=== PATIENT | female | born 1955 | race Hispanic/Latino ===

== ENCOUNTER 2017-09-30 03:23 | Inpatient (IN) | payer MEDICARE ==
[~2017-09-30] VITALS: Ht 162.6 cm; Wt 83.8 kg
[2017-09-30] VITALS (10 sets, daily range): BP systolic 126–176; BP diastolic 45–100
[2017-09-30] MEDS ORDERED: ONDANSETRON HCL 4 MG/2 ML VIAL ONE (05:17)
[2017-09-30] MEDS ORDERED: MORPHINE SULFATE 4 MG/1ML SYG ONE (05:17)
[2017-09-30 05:23] LABS: BASOPHILS % (AUTO) 0.6 % (0.0-5.0); EOSINOPHILS % (AUTO) 1.4 % (0.0-8.0); HEMATOCRIT 28.7 % (36-48); LYMPHOCYTES % (AUTO) 13.1 % (21.0-51.0); MEAN CORPUSCULAR HEMOGLOBIN 30.3 pg (27.0-33.0); MEAN CORPUSCULAR HGB CONC 33.4 g/dL (32.0-36.0); MEAN CORPUSCULAR VOLUME 90.7 fL (79-99); MONOCYTES % (AUTO) 6.2 % (3.0-13.0); NEUTROPHILS % (AUTO) 78.7 % (40.0-77.0); PLATELET COUNT (AUTO) 127 K/uL (130-400); RED BLOOD CELL COUNT(AUTO) 3.16 MIL/uL (4.00-5.50); RED CELL DISTRIBUTION WIDTH 14.6 % (11.0-15.5); WHITE BLOOD COUNT (AUTO) 6.7 K/uL (4.8-10.8)
[2017-09-30 05:30] LABS: CREATININE 7.2 mg/dL (0.5-1.5)
[2017-09-30 05:34] LABS: ALBUMIN 3.5 g/dL (3.5-5.0); BILIRUBIN,TOTAL 0.5 mg/dL (0.2-1.0)
[2017-09-30 05:36] LABS: INR 1.12 (0.85-1.15); PARTIAL THROMBOPLASTIN TIME 24.8 SEC (26.3-35.5); PROTHROMBIN TIME 11.7 SEC (9.6-11.6)
[2017-09-30] MEDS ORDERED: MORPHINE SULFATE 4 MG/1ML SYG IVP PRN (06:00)
[2017-09-30] MEDS ORDERED: DEXTROSE 50%-WATER 50 ML DISP.SYRIN IV PRN (06:00)
[2017-09-30] MEDS ORDERED: GLUCAGON 1MG KIT 1 MG ML IM PRN (06:00)
[2017-09-30] MEDS: FAMOTIDINE/PF 20 MG/2 ML VIAL IV SCH ×2 (09:00→19:58)
[2017-09-30] MEDS ORDERED: FAMOTIDINE/PF 20 MG/2 ML VIAL IV ONE (09:05)
[2017-09-30] MEDS ORDERED: MORPHINE SULFATE 2 MG/ML 1ML SYG ONE (09:12)
[2017-09-30] MEDS ORDERED: INSULIN HUMULIN R 100 UNIT/ML 3ML ONE (09:41)
[2017-09-30] MEDS: INSULIN R NPO SSI SQ SCH ×3 (09:45→18:00)
[2017-09-30] MEDS ORDERED: ONDANSETRON HCL 4 MG/2 ML VIAL IVP PRN (14:15)
[2017-09-30] MEDS ORDERED: HYDROMORPHONE 1 MG/1 ML AMP IVP PRN (14:15)
[2017-09-30] MEDS ORDERED: PANTOPRAZOLE 40 MG/VIAL IVP SCH (15:00)
[2017-09-30] MEDS ORDERED: ALBUMIN (HUMAN) 25% 100 ML IV PRN (16:45)
[2017-09-30] MEDS ORDERED: 0.9% SODIUM CHLORIDE 250 ML IV BAG IV PRN (16:45)
[2017-09-30] MEDS ORDERED: SODIUM CHLORIDE 0.9% 1000ML 1,000 ML IV PRN (16:45)
[2017-09-30] MEDS: CEFTRIAXONE SODIUM 1 GM IVP SCH (19:49)
[2017-09-30] MEDS ORDERED: INSU100I3 SQ (20:04)
[2017-09-30] MEDS ORDERED: CARV6.25 PO (20:04)
[2017-09-30] MEDS ORDERED: SIME80TA12 PO (20:04)
[2017-09-30] MEDS ORDERED: BUSP7.5T7 PO (20:04)
[2017-09-30] MEDS ORDERED: ISOS30TA6 PO (20:04)
[2017-09-30] MEDS ORDERED: OMEP40CA37 PO (20:04)
[2017-09-30] MEDS ORDERED: INSU3INS3 SQ (20:04)
[2017-09-30] MEDS ORDERED: ACET1TAB25 PO (20:04)
[2017-09-30] MEDS ORDERED: FENO145T37 PO (20:04)
[2017-09-30] MEDS ORDERED: VALS40TA11 PO (20:04)
[2017-09-30] MEDS ORDERED: DOCU100C33 PO (20:04)
[2017-10-01] MEDS: HYDROMORPHONE 1 MG/1 ML AMP IVP PRN ×3 (03:18→16:50)
[2017-10-01 03:30] VITALS: BP 138/70
[2017-10-01 05:48] LABS: HEMATOCRIT 27.9 % (36-48); MEAN CORPUSCULAR HEMOGLOBIN 31.8 pg (27.0-33.0); MEAN CORPUSCULAR HGB CONC 35.3 g/dL (32.0-36.0); MEAN CORPUSCULAR VOLUME 89.9 fL (79-99); PLATELET COUNT (AUTO) 94 K/uL (130-400); RED CELL DISTRIBUTION WIDTH 14.8 % (11.0-15.5)
[2017-10-01 06:09] LABS: CREATININE 6.1 mg/dL (0.5-1.5); MAGNESIUM 2.1 mg/dL (1.80-2.40); POTASSIUM 4.6 mmol/L (3.5-5.1); THYROID STIMULATING HORMONE 1.35 uIU/mL (0.36-3.74)
[2017-10-01] MEDS: INSULIN R NPO SSI SQ SCH ×5 (06:32→20:48)
[2017-10-01 07:30] VITALS: BP 139/60
[2017-10-01] MEDS: ACETAMINOPHEN 325 MG TAB PO PRN ×2 (08:45→20:58)
[2017-10-01] MEDS: PANTOPRAZOLE SODIUM 40 MG TABLET.DR PO SCH (08:46)
[2017-10-01] MEDS: FAMOTIDINE/PF 20 MG/2 ML VIAL IV SCH ×2 (08:46→20:43)
[2017-10-01 11:00] VITALS: BP 128/64
[2017-10-01] MEDS: CEFTRIAXONE SODIUM 1 GM IVP SCH (13:51)
[2017-10-01 16:00] VITALS: BP 133/67
[2017-10-01 19:40] VITALS: BP 117/60
[2017-10-01 23:30] VITALS: BP 127/57
[2017-10-02 03:45] VITALS: BP 126/61
[2017-10-02] MEDS: HYDROMORPHONE 1 MG/1 ML AMP IVP PRN ×3 (05:30→18:02)
[2017-10-02] MEDS: INSULIN R NPO SSI SQ SCH ×3 (06:00→17:19)
[2017-10-02 06:09] LABS: BASOPHILS % (AUTO) 0.5 % (0.0-5.0); EOSINOPHILS % (AUTO) 2.6 % (0.0-8.0); HEMATOCRIT 29.1 % (36-48); LYMPHOCYTES % (AUTO) 13.8 % (21.0-51.0); MEAN CORPUSCULAR HGB CONC 33.1 g/dL (32.0-36.0); MEAN CORPUSCULAR VOLUME 90.4 fL (79-99); MONOCYTES % (AUTO) 9.6 % (3.0-13.0); NEUTROPHILS % (AUTO) 73.5 % (40.0-77.0); PLATELET COUNT (AUTO) 103 K/uL (130-400); RED BLOOD CELL COUNT(AUTO) 3.22 MIL/uL (4.00-5.50); RED CELL DISTRIBUTION WIDTH 14.6 % (11.0-15.5); WHITE BLOOD COUNT (AUTO) 6.9 K/uL (4.8-10.8)
[2017-10-02 06:21] LABS: INR 1.12 (0.85-1.15); PARTIAL THROMBOPLASTIN TIME 27.9 SEC (26.3-35.5); PROTHROMBIN TIME 11.7 SEC (9.6-11.6)
[2017-10-02 06:22] LABS: CREATININE 7.9 mg/dL (0.5-1.5)
[2017-10-02] MEDS: PANTOPRAZOLE SODIUM 40 MG TABLET.DR PO SCH (06:54)
[2017-10-02 07:30] VITALS: BP 138/67
[2017-10-02] MEDS: FAMOTIDINE/PF 20 MG/2 ML VIAL IV SCH ×2 (09:45→20:52)
[2017-10-02 11:00] VITALS: BP 127/59
[2017-10-02] MEDS: CEFTRIAXONE SODIUM 1 GM IVP SCH (15:06)
[2017-10-02 16:00] VITALS: BP 115/51
[2017-10-02 19:58] VITALS: BP 126/50
[2017-10-02] MEDS: ACETAMINOPHEN 325 MG TAB PO PRN (20:50)
[2017-10-02 23:55] VITALS: BP 125/57
[2017-10-03] VITALS (18 sets, daily range): BP systolic 134–179; BP diastolic 56–79
[2017-10-03] MEDS: HYDROMORPHONE 1 MG/1 ML AMP IVP PRN ×2 (00:50→06:02)
[2017-10-03 05:11] LABS: HEMATOCRIT 33.1 % (36-48); MEAN CORPUSCULAR HEMOGLOBIN 30.4 pg (27.0-33.0); MEAN CORPUSCULAR HGB CONC 34.5 g/dL (32.0-36.0); MEAN CORPUSCULAR VOLUME 88.2 fL (79-99); NUCLEATED RED BLOOD CELLS 0.1 % (0.0-0.19); PLATELET COUNT (AUTO) 148 K/uL (130-400); RED BLOOD CELL COUNT(AUTO) 3.75 MIL/uL (4.00-5.50); RED CELL DISTRIBUTION WIDTH 14.4 % (11.0-15.5); WHITE BLOOD COUNT (AUTO) 7.1 K/uL (4.8-10.8)
[2017-10-03 05:19] LABS: BAND NEUTROPHILS % (MANUAL) 2 % (0-2); BASOPHILS % (MANUAL) 1 % (0-2); LYMPHOCYTES % (MANUAL) 6 % (22-44); MAN.DIFF COMMENT-IMPRESSION MANUAL DIFFERENTIAL; MONOCYTES % (MANUAL) 7 % (2-9); PLATELET MORPHOLOGY COMMENT SLIGHTLY DECREASED; SEGMENTED NEUTROPHILS % 84 % (40-70)
[2017-10-03 05:20] LABS: INR 1.04 (0.85-1.15); PARTIAL THROMBOPLASTIN TIME 28.2 SEC (26.3-35.5); PROTHROMBIN TIME 10.9 SEC (9.6-11.6)
[2017-10-03 05:21] LABS: CREATININE 4.1 mg/dL (0.5-1.5); MAGNESIUM 2.2 mg/dL (1.80-2.40); POTASSIUM 3.5 mmol/L (3.5-5.1)
[2017-10-03] MEDS: INSULIN R NPO SSI SQ SCH ×4 (06:00→18:00)
[2017-10-03] MEDS: PANTOPRAZOLE SODIUM 40 MG TABLET.DR PO SCH (07:30)
[2017-10-03] MEDS: FAMOTIDINE/PF 20 MG/2 ML VIAL IV SCH ×2 (09:24→20:52)
[2017-10-03] MEDS ORDERED: MORPHINE SULFATE 4 MG/1ML SYG IVP PRN (09:45)
[2017-10-03] MEDS ORDERED: PROPOFOL 10 MG/ML 20ML VIAL IV ONE (12:56)
[2017-10-03] MEDS ORDERED: GLYCOPYRROLATE 0.2 MG/ML 5 ML VIAL ONE (12:56)
[2017-10-03] MEDS ORDERED: ONDANSETRON HCL 4 MG/2 ML VIAL ONE (12:56)
[2017-10-03] MEDS ORDERED: MIDAZOLAM HCL 1 MG/ML 2ML VIAL ONE (12:56)
[2017-10-03] MEDS ORDERED: DEXAMETHASONE SOD PHOSPHATE 10MG/ML 1ML VIAL ONE (12:56)
[2017-10-03] MEDS ORDERED: FENTANYL CITRATE PF 50 MCG/1 ML 2ML VIAL ONE (12:56)
[2017-10-03] MEDS ORDERED: LIDOCAINE PF 2% 5ML ABBOJECT ONE (12:56)
[2017-10-03] MEDS ORDERED: CEFAZOLIN SODIUM 1 GM VIAL ONE (13:17)
[2017-10-03] MEDS: CEFTRIAXONE SODIUM 1 GM IVP SCH (14:30)
[2017-10-03] MEDS ORDERED: ROPIVACAINE 0.5% 5MG/ML 30ML IJ ONE (15:15)
[2017-10-03] MEDS ORDERED: CEFAZOLIN 2GM / 50 ML 50 ML IV SCH (16:15)
[2017-10-03] MEDS ORDERED: MORPHINE SULFATE 4 MG/1ML SYG IV PRN (16:30)
[2017-10-03] MEDS: CEFAZOLIN SODIUM 1 GM VIAL IVP SCH (19:03)
[2017-10-03] MEDS: INSULIN HUMULIN R 100 UNIT/ML 3ML SQ SCH (22:52)
[2017-10-04] MEDS: CEFAZOLIN SODIUM 1 GM VIAL IVP SCH (02:29)
[2017-10-04 04:00] VITALS: BP 150/60
[2017-10-04 05:17] LABS: HEMATOCRIT 31.1 % (36-48); MEAN CORPUSCULAR HEMOGLOBIN 30.1 pg (27.0-33.0); MEAN CORPUSCULAR HGB CONC 33.5 g/dL (32.0-36.0); MEAN CORPUSCULAR VOLUME 89.9 fL (79-99); PLATELET COUNT (AUTO) 140 K/uL (130-400); RED BLOOD CELL COUNT(AUTO) 3.46 MIL/uL (4.00-5.50); RED CELL DISTRIBUTION WIDTH 14.4 % (11.0-15.5); WHITE BLOOD COUNT (AUTO) 6.4 K/uL (4.8-10.8)
[2017-10-04 05:27] LABS: CREATININE 7.8 mg/dL (0.5-1.5); POTASSIUM 4.9 mmol/L (3.5-5.1)
[2017-10-04 05:36] LABS: EOSINOPHILS % (MANUAL) 2 % (1-6); LYMPHOCYTES % (MANUAL) 8 % (22-44); MAN.DIFF COMMENT-IMPRESSION MANUAL DIFFERENTIAL; MONOCYTES % (MANUAL) 6 % (2-9); PLATELET MORPHOLOGY COMMENT SLIGHTLY DECREASED; SEGMENTED NEUTROPHILS % 84 % (40-70)
[2017-10-04] MEDS: INSULIN HUMULIN R 100 UNIT/ML 3ML SQ SCH ×4 (06:37→21:06)
[2017-10-04 07:00] VITALS: BP 153/66
[2017-10-04] MEDS: HYDROMORPHONE 1 MG/1 ML AMP IVP PRN (08:57)
[2017-10-04] MEDS: PANTOPRAZOLE SODIUM 40 MG TABLET.DR PO SCH (08:57)
[2017-10-04] MEDS: FAMOTIDINE/PF 20 MG/2 ML VIAL IV SCH ×2 (08:57→20:59)
[2017-10-04 11:20] VITALS: BP 131/57
[2017-10-04] MEDS: HEPARIN SODIUM 5000UNIT/ML 1ML VIAL SQ SCH ×2 (13:01→23:37)
[2017-10-04] MEDS: CEFTRIAXONE SODIUM 1 GM IVP SCH (14:59)
[2017-10-04 15:00] VITALS: BP 108/55
[2017-10-04] MEDS ORDERED: SIMETHICONE 80 MG TAB.CHEW PO PRN (17:00)
[2017-10-04 19:10] VITALS: BP 118/52
[2017-10-04] MEDS: CARVEDILOL 6.25 MG TABLET PO SCH (20:59)
[2017-10-04] MEDS: ACETAMINOPHEN-CODEINE 300/30MG TAB PO PRN (21:00)
[2017-10-04] MEDS ORDERED: FENOFIBRATE NANOCRYSTALLIZED 145 MG TAB PO SCH (21:00)
[2017-10-04 23:05] VITALS: BP 122/59
[2017-10-05 03:05] VITALS: BP 138/86
[2017-10-05] MEDS: ACETAMINOPHEN-CODEINE 300/30MG TAB PO PRN ×3 (04:32→13:42)
[2017-10-05 05:13] LABS: BASOPHILS % (AUTO) 0.6 % (0.0-5.0); EOSINOPHILS % (AUTO) 2.4 % (0.0-8.0); HEMATOCRIT 32.9 % (36-48); LYMPHOCYTES % (AUTO) 14.6 % (21.0-51.0); MEAN CORPUSCULAR HEMOGLOBIN 30.2 pg (27.0-33.0); MEAN CORPUSCULAR HGB CONC 34.5 g/dL (32.0-36.0); MEAN CORPUSCULAR VOLUME 87.6 fL (79-99); MONOCYTES % (AUTO) 7.3 % (3.0-13.0); NEUTROPHILS % (AUTO) 75.1 % (40.0-77.0); PLATELET COUNT (AUTO) 176 K/uL (130-400); RED BLOOD CELL COUNT(AUTO) 3.75 MIL/uL (4.00-5.50); RED CELL DISTRIBUTION WIDTH 14.3 % (11.0-15.5); WHITE BLOOD COUNT (AUTO) 7.9 K/uL (4.8-10.8)
[2017-10-05 05:29] LABS: CREATININE 3.6 mg/dL (0.5-1.5); PHOSPHORUS 2.6 mg/dL (2.5-4.9); POTASSIUM 3.1 mmol/L (3.5-5.1)
[2017-10-05] MEDS: HYDROMORPHONE 1 MG/1 ML AMP IVP PRN (05:38)
[2017-10-05] MEDS: INSULIN HUMULIN R 100 UNIT/ML 3ML SQ SCH ×3 (06:06→16:22)
[2017-10-05] MEDS ORDERED: PANTOPRAZOLE SODIUM 40 MG TABLET.DR PO SCH (07:30)
[2017-10-05] MEDS ORDERED: INSULIN GLARGINE 100 UNITS/ML 10 ML VIAL SQ SCH (07:30)
[2017-10-05 07:40] VITALS: BP 140/85
[2017-10-05] MEDS: CARVEDILOL 6.25 MG TABLET PO SCH (08:44)
[2017-10-05] MEDS: PANTOPRAZOLE SODIUM 40 MG TABLET.DR PO SCH (08:45)
[2017-10-05] MEDS: FAMOTIDINE/PF 20 MG/2 ML VIAL IV SCH (08:52)
[2017-10-05] MEDS ORDERED: ISOSORBIDE MONO 30MG TAB SR PO SCH (09:00)
[2017-10-05] MEDS ORDERED: LOSARTAN 50 MG TABLET PO SCH (09:00)
[2017-10-05] MEDS ORDERED: DOCUSATE SODIUM 100 MG CAP PO SCH (09:00)
[2017-10-05] MEDS ORDERED: LACTULOSE 20 GM/30 ML UDCUP PO SCH (09:30)
[2017-10-05 11:17] VITALS: BP 97/50
[2017-10-05] MEDS: HEPARIN SODIUM 5000UNIT/ML 1ML VIAL SQ SCH (11:46)
[2017-10-05] MEDS: CEFTRIAXONE SODIUM 1 GM IVP SCH (14:30)
[2017-10-05 16:14] VITALS: BP 119/56
== END 2017-10-05 17:30 | DRG 492 ==
LOC: EDH 03:23 → EDHIP 04:50 → 4BH 13:13
PROVIDERS: ADMIT Family Medicine; ATTEND Family Medicine
PROC: 5A1D70Z Performance of Urinary Filtration, Intermittent, Less than 6 Hours Per Day (ICD-10-PCS; 2017-09-30)
PROC: 5A1D70Z Performance of Urinary Filtration, Intermittent, Less than 6 Hours Per Day (ICD-10-PCS; 2017-10-03)
PROC: 0QSJ04Z Reposition Right Fibula with Internal Fixation Device, Open Approach (ICD-10-PCS; principal; 2017-10-04)
PROC: 0QSKXZZ Reposition Left Fibula, External Approach (ICD-10-PCS; 2017-10-04)
PROC: 0QSG04Z Reposition Right Tibia with Internal Fixation Device, Open Approach (ICD-10-PCS; 2017-10-04)
PROC: 2W3RX1Z Immobilization of Left Lower Leg using Splint (ICD-10-PCS; 2017-10-04)
PROC: 5A1D70Z Performance of Urinary Filtration, Intermittent, Less than 6 Hours Per Day (ICD-10-PCS; 2017-10-05)
DX: S82.844A Nondisplaced bimalleolar fracture of right lower leg, initial encounter for closed fracture (principal); N18.6 End stage renal disease; S82.142A Displaced bicondylar fracture of left tibia, initial encounter for closed fracture; I42.9 Cardiomyopathy, unspecified; I12.0 Hypertensive chronic kidney disease with stage 5 chronic kidney disease or end stage renal disease; H40.9 Unspecified glaucoma; M81.0 Age-related osteoporosis without current pathological fracture; K59.00 Constipation, unspecified; K21.9 Gastro-esophageal reflux disease without esophagitis; F32.9 Major depressive disorder, single episode, unspecified; E11.22 Type 2 diabetes mellitus with diabetic chronic kidney disease; E11.51 Type 2 diabetes mellitus with diabetic peripheral angiopathy without gangrene; I25.10 Atherosclerotic heart disease of native coronary artery without angina pectoris; W01.0XXA Fall on same level from slipping, tripping and stumbling without subsequent striking against object, initial encounter; Z99.2 Dependence on renal dialysis; D64.9 Anemia, unspecified; E78.5 Hyperlipidemia, unspecified; Z87.81 Personal history of (healed) traumatic fracture; Z83.3 Family history of diabetes mellitus; Z95.810 Presence of automatic (implantable) cardiac defibrillator; Z95.0 Presence of cardiac pacemaker; Z91.19 Patient's noncompliance with other medical treatment and regimen
CPT/HCPCS: 36415; 71045; 73590; 73610; 76000; 80048; 80053; 82948; 83735; 84100; 84443; 85025; 85027; 85610; 85730; 86850; 86900; 86901; 90935; 93005; 97039; 99291; A4218; C9113; J0690; J0696; J1100; J1170; J1644; J1815; J2001; J2250; J2270; J2405; J2704; J2795; J3010; J3490; J7030

== ENCOUNTER 2020-06-18 11:19 | Inpatient (IN) | payer MEDICARE ==
[~2020-06-18] VITALS: Ht 157.5 cm; Wt 76.6 kg
[~2020-06-18 11:19] MED LIST: ACET1TAB25 PO; BUSP7.5T7 PO; CARV6.25 PO; DOCU100C33 PO; FENO145T26 PO; INSU100I3 SQ; INSU3INS3 SQ; ISOS30TA92 PO; OMEP40CA21 PO; SIME80TA12 PO; VALS40TA11 PO
[2020-06-18 11:39] LABS: BASOPHILS % (AUTO) 0.2 % (0.0-5.0); EOSINOPHILS % (AUTO) 1.5 % (0.0-8.0); LYMPHOCYTES % (AUTO) 5.6 % (21.0-51.0); MEAN CORPUSCULAR HEMOGLOBIN 29.8 pg (27.0-33.0); MEAN CORPUSCULAR HGB CONC 31.2 g/dL (32.0-36.0); MEAN CORPUSCULAR VOLUME 95.6 fL (79-99); MONOCYTES % (AUTO) 6.9 % (3.0-13.0); NEUTROPHILS % (AUTO) 85.3 % (40.0-77.0); PLATELET COUNT (AUTO) 142 K/uL (130-400); RED BLOOD CELL COUNT(AUTO) 2.72 MIL/uL (4.00-5.50); RED CELL DISTRIBUTION WIDTH 14.7 % (11.0-15.5); WHITE BLOOD COUNT (AUTO) 13.8 K/uL (4.8-10.8)
[2020-06-18 12:14] LABS: ALBUMIN 3.1 g/dL (3.5-5.0); CREATININE 5.3 mg/dL (0.5-1.5); POTASSIUM 4.3 mmol/L (3.5-5.1); TOTAL PROTEIN, SERUM 7.7 g/dL (6.0-8.3)
[2020-06-18] MEDS ORDERED: ONDANSETRON 4MG INJ ONE (12:56)
[2020-06-18] MEDS ORDERED: 0.9%NACL 1000ML 1,000 ML IV ONE (12:56)
[2020-06-18] MEDS ORDERED: ASPIRIN 325MG EC TAB PO ONE (12:56)
[2020-06-18] MEDS ORDERED: ZOSYN 3.375GM+NS 50ML 50 ML IV ONE ×2 (12:56→21:51)
[2020-06-18] MEDS ORDERED: IOHEXOL-350 75 ML VIAL IV ONE (15:03)
[2020-06-18] MEDS ORDERED: ACETAMINOPHEN 325 MG TAB PO PRN ×2 (18:00)
[2020-06-18] MEDS ORDERED: MORPHINE 2 MG SYG IV PRN (18:00)
[2020-06-18] MEDS ORDERED: ONDANSETRON 4MG INJ IV PRN (18:00)
[2020-06-18] MEDS: FAMOTIDINE 20MG VIAL IV SCH (21:00)
[2020-06-18] MEDS ORDERED: MORPHINE 2 MG SYG ONE (21:52)
[2020-06-18] MEDS ORDERED: FAMOTIDINE 20MG VIAL IV ONE (21:52)
[2020-06-19] VITALS (9 sets, daily range): BP systolic 80–155; BP diastolic 13–79
[2020-06-19] MEDS ORDERED: ZOSYN 3.375GM+NS 50ML 50 ML IV ONE (04:20)
[2020-06-19] MEDS ORDERED: ATOR40TA71 PO (04:24)
[2020-06-19 05:48] LABS: BASOPHILS % (AUTO) 0.3 % (0.0-5.0); EOSINOPHILS % (AUTO) 1.9 % (0.0-8.0); HEMATOCRIT 24.6 % (36-48); LYMPHOCYTES % (AUTO) 12.4 % (21.0-51.0); MEAN CORPUSCULAR HEMOGLOBIN 29.6 pg (27.0-33.0); MEAN CORPUSCULAR HGB CONC 30.5 g/dL (32.0-36.0); MEAN CORPUSCULAR VOLUME 97.2 fL (79-99); MONOCYTES % (AUTO) 8.5 % (3.0-13.0); NEUTROPHILS % (AUTO) 76.5 % (40.0-77.0); PLATELET COUNT (AUTO) 133 K/uL (130-400); RED BLOOD CELL COUNT(AUTO) 2.53 MIL/uL (4.00-5.50); RED CELL DISTRIBUTION WIDTH 15.3 % (11.0-15.5); WHITE BLOOD COUNT (AUTO) 11.4 K/uL (4.8-10.8)
[2020-06-19 05:56] LABS: ALBUMIN 2.6 g/dL (3.5-5.0); BILIRUBIN,TOTAL 0.9 mg/dL (0.2-1.0); CREATININE 6.5 mg/dL (0.5-1.5); CRP QUANTITATIVE 31.5 mg/L (0.00-9.0); TOTAL PROTEIN, SERUM 6.8 g/dL (6.0-8.3)
[2020-06-19 06:04] LABS: POTASSIUM 6.2 mmol/L (3.5-5.1)
[2020-06-19] MEDS ORDERED: KAYEXALATE 15GM/60ML PO SCH ×2 (07:00→18:55)
[2020-06-19 07:08] LABS: ERYTHROCYTE SEDIMENTATION RATE 96 MM/HR (0-30)
[2020-06-19] MEDS: ASPIRIN 81MG CHEW TAB PO SCH (08:50)
[2020-06-19] MEDS: INSULIN HUMULIN R 100 UNIT/ML 3ML SQ SCH (12:00)
[2020-06-19] MEDS ORDERED: 0.9% NACL 500ML IV.SOLN 500 ML IV SCH (13:15)
[2020-06-19] MEDS: MIDODRINE HCL 5 MG TABLET PO SCH ×2 (13:30→17:52)
[2020-06-19] MEDS: ZOSYN 3.375GM+NS 50ML 50 ML IV SCH (13:33)
[2020-06-19] MEDS ORDERED: DEXTROSE 50%-WATER 50 ML DISP.SYRIN IV ONE (20:35)
[2020-06-19] MEDS: FAMOTIDINE 20MG VIAL IV SCH (21:00)
[2020-06-20] VITALS (28 sets, daily range): BP systolic 84–127; BP diastolic 26–69
[2020-06-20] MEDS: ATORVASTATIN 40 MG TABLET PO SCH ×2 (00:22→21:04)
[2020-06-20] MEDS: MIDODRINE HCL 5 MG TABLET PO SCH ×4 (00:22→21:04)
[2020-06-20] MEDS: MILRINONE-D5W 20 MG/100 ML 100 ML IV SCH ×2 (03:35→13:46)
[2020-06-20] MEDS: INSULIN HUMULIN R 100 UNIT/ML 3ML SQ SCH ×6 (05:12→21:04)
[2020-06-20] MEDS: ZOSYN 3.375GM+NS 50ML 50 ML IV SCH ×3 (05:13→21:04)
[2020-06-20 06:20] LABS: BASOPHILS % (AUTO) 0.5 % (0.0-5.0); EOSINOPHILS % (AUTO) 2.5 % (0.0-8.0); HEMATOCRIT 23.5 % (36-48); LYMPHOCYTES % (AUTO) 12.3 % (21.0-51.0); MEAN CORPUSCULAR HEMOGLOBIN 29.6 pg (27.0-33.0); MEAN CORPUSCULAR HGB CONC 31.1 g/dL (32.0-36.0); MEAN CORPUSCULAR VOLUME 95.1 fL (79-99); MONOCYTES % (AUTO) 10.7 % (3.0-13.0); PLATELET COUNT (AUTO) 149 K/uL (130-400); RED BLOOD CELL COUNT(AUTO) 2.47 MIL/uL (4.00-5.50); RED CELL DISTRIBUTION WIDTH 15.2 % (11.0-15.5); WHITE BLOOD COUNT (AUTO) 9.4 K/uL (4.8-10.8)
[2020-06-20 06:49] LABS: MAGNESIUM 2.1 mg/dL (1.80-2.40); PHOSPHORUS 9.9 mg/dL (2.5-4.9); POTASSIUM 5.1 mmol/L (3.5-5.1)
[2020-06-20 07:05] LABS: CREATININE 7.9 mg/dL (0.5-1.5)
[2020-06-20] MEDS: ASPIRIN 81MG CHEW TAB PO SCH (08:21)
[2020-06-20] MEDS: INSULIN GLARGINE 100 UNITS/ML 10 ML VIAL SQ SCH ×2 (09:00→09:29)
[2020-06-20] MEDS ORDERED: INSULIN HUMULIN R 100 UNIT/ML 3ML SQ SCH (11:30)
[2020-06-20] MEDS: FAMOTIDINE 20MG VIAL IV SCH (21:04)
[2020-06-21] VITALS (25 sets, daily range): BP systolic 90–131; BP diastolic 28–68
[2020-06-21 03:51] LABS: BASOPHILS % (AUTO) 0.5 % (0.0-5.0); EOSINOPHILS % (AUTO) 3.8 % (0.0-8.0); HEMATOCRIT 24.7 % (36-48); LYMPHOCYTES % (AUTO) 11.2 % (21.0-51.0); MEAN CORPUSCULAR HEMOGLOBIN 29.4 pg (27.0-33.0); MEAN CORPUSCULAR HGB CONC 32.4 g/dL (32.0-36.0); MEAN CORPUSCULAR VOLUME 90.8 fL (79-99); MONOCYTES % (AUTO) 12.3 % (3.0-13.0); NEUTROPHILS % (AUTO) 71.9 % (40.0-77.0); PLATELET COUNT (AUTO) 168 K/uL (130-400); RED BLOOD CELL COUNT(AUTO) 2.72 MIL/uL (4.00-5.50); WHITE BLOOD COUNT (AUTO) 10.1 K/uL (4.8-10.8)
[2020-06-21 04:01] LABS: CREATININE 6.4 mg/dL (0.5-1.5); POTASSIUM 3.7 mmol/L (3.5-5.1)
[2020-06-21] MEDS: ZOSYN 3.375GM+NS 50ML 50 ML IV SCH ×3 (05:45→21:42)
[2020-06-21] MEDS: INSULIN HUMULIN R 100 UNIT/ML 3ML SQ SCH ×4 (07:30→21:00)
[2020-06-21] MEDS: MIDODRINE HCL 5 MG TABLET PO SCH ×3 (08:53→21:42)
[2020-06-21] MEDS: ASPIRIN 81MG CHEW TAB PO SCH (08:53)
[2020-06-21] MEDS: INSULIN GLARGINE 100 UNITS/ML 10 ML VIAL SQ SCH (09:01)
[2020-06-21] MEDS ORDERED: PHARMACY COMMUNICATION MISC SCH (12:15)
[2020-06-21] MEDS: CARVEDILOL 3.125 MG TABLET PO SCH ×2 (12:20→21:00)
[2020-06-21] MEDS: ISOSORBIDE MONO 30MG SR TAB PO SCH (12:20)
[2020-06-21] MEDS: LOSARTAN 50 MG TABLET PO SCH (12:23)
[2020-06-21] MEDS: MILRINONE-D5W 20 MG/100 ML 100 ML IV SCH (13:51)
[2020-06-21 17:08] LABS: HEPATITIS B CORE IGM Negative (Negative); HEPATITIS Bs ANTIGEN SCREEN P Negative (Negative)
[2020-06-21] MEDS: ATORVASTATIN 40 MG TABLET PO SCH (21:42)
[2020-06-21] MEDS: FAMOTIDINE 20MG VIAL IV SCH (21:44)
[2020-06-22] VITALS (23 sets, daily range): BP systolic 97–137; BP diastolic 36–93
[2020-06-22] MEDS: ZOSYN 3.375GM+NS 50ML 50 ML IV SCH ×3 (06:13→21:27)
[2020-06-22 06:15] LABS: BASOPHILS % (AUTO) 0.7 % (0.0-5.0); HEMATOCRIT 25.7 % (36-48); LYMPHOCYTES % (AUTO) 17.5 % (21.0-51.0); MEAN CORPUSCULAR HEMOGLOBIN 29.3 pg (27.0-33.0); MEAN CORPUSCULAR HGB CONC 32.7 g/dL (32.0-36.0); MEAN CORPUSCULAR VOLUME 89.5 fL (79-99); MONOCYTES % (AUTO) 11.4 % (3.0-13.0); NEUTROPHILS % (AUTO) 65.1 % (40.0-77.0); PLATELET COUNT (AUTO) 187 K/uL (130-400); RED BLOOD CELL COUNT(AUTO) 2.87 MIL/uL (4.00-5.50); WHITE BLOOD COUNT (AUTO) 9.8 K/uL (4.8-10.8)
[2020-06-22 06:38] LABS: POTASSIUM 4.2 mmol/L (3.5-5.1)
[2020-06-22 06:39] LABS: CREATININE 8.3 mg/dL (0.5-1.5)
[2020-06-22] MEDS: INSULIN HUMULIN R 100 UNIT/ML 3ML SQ SCH ×4 (07:30→21:00)
[2020-06-22 07:51] LABS: ALBUMIN 2.4 g/dL (3.5-5.0); BILIRUBIN,DIRECT 0.2 mg/dL (0.0-0.3); BILIRUBIN,TOTAL 0.7 mg/dL (0.2-1.0); TOTAL PROTEIN, SERUM 6.4 g/dL (6.0-8.3)
[2020-06-22] MEDS: LACTULOSE 20 GM/30 ML UDCUP PO SCH (08:45)
[2020-06-22] MEDS ORDERED: 0.9% NACL 250ML 500 ML IV SCH (08:45)
[2020-06-22] MEDS ORDERED: ALBUMIN (HUMAN) 25% 50 ML IV SCH (08:45)
[2020-06-22] MEDS: CARVEDILOL 3.125 MG TABLET PO SCH (08:50)
[2020-06-22] MEDS: LOSARTAN 50 MG TABLET PO SCH (08:50)
[2020-06-22] MEDS: ISOSORBIDE MONO 30MG SR TAB PO SCH (08:51)
[2020-06-22] MEDS: ASPIRIN 81MG CHEW TAB PO SCH (08:55)
[2020-06-22] MEDS: MIDODRINE HCL 5 MG TABLET PO SCH ×3 (08:55→21:28)
[2020-06-22] MEDS ORDERED: ALBUMIN (HUMAN) 25% 100 ML IV ONE (08:55)
[2020-06-22] MEDS: INSULIN GLARGINE 100 UNITS/ML 10 ML VIAL SQ SCH (08:57)
[2020-06-22] MEDS: SENNOSIDES 8.6 MG TABLET PO SCH (09:00)
[2020-06-22] MEDS: DOCUSATE SODIUM 100 MG CAP PO SCH (09:00)
[2020-06-22] MEDS: FAMOTIDINE 20MG VIAL IV SCH (21:28)
[2020-06-22] MEDS: ATORVASTATIN 40 MG TABLET PO SCH (21:28)
[2020-06-23] VITALS (11 sets, daily range): BP systolic 98–132; BP diastolic 45–72
[2020-06-23 04:22] LABS: MAGNESIUM 2.2 mg/dL (1.80-2.40); PHOSPHORUS 10.7 mg/dL (2.5-4.9); POTASSIUM 4.6 mmol/L (3.5-5.1)
[2020-06-23 04:27] LABS: CREATININE 9.9 mg/dL (0.5-1.5)
[2020-06-23] MEDS: ZOSYN 3.375GM+NS 50ML 50 ML IV SCH ×3 (05:19→21:56)
[2020-06-23] MEDS: INSULIN HUMULIN R 100 UNIT/ML 3ML SQ SCH ×4 (07:30→22:02)
[2020-06-23] MEDS: LACTULOSE 20 GM/30 ML UDCUP PO SCH (08:45)
[2020-06-23] MEDS: INSULIN GLARGINE 100 UNITS/ML 10 ML VIAL SQ SCH (09:00)
[2020-06-23] MEDS: LOSARTAN 50 MG TABLET PO SCH (09:00)
[2020-06-23] MEDS: SENNOSIDES 8.6 MG TABLET PO SCH (11:17)
[2020-06-23] MEDS: ASPIRIN 81MG CHEW TAB PO SCH (11:17)
[2020-06-23] MEDS: DOCUSATE SODIUM 100 MG CAP PO SCH (11:17)
[2020-06-23] MEDS ORDERED: EPOETIN ALFA-EPBX (ESRD) 10,000 UNIT/ML VIAL SQ SCH (11:25)
[2020-06-23] MEDS: MIDODRINE HCL 5 MG TABLET PO SCH ×2 (11:33→13:19)
[2020-06-23] MEDS: SEVELAMER HCL 800 MG TABLET PO SCH ×2 (12:23→18:23)
[2020-06-23] MEDS: ATORVASTATIN 40 MG TABLET PO SCH (21:56)
[2020-06-23] MEDS: FAMOTIDINE 20MG VIAL IV SCH (21:56)
[2020-06-24] VITALS (7 sets, daily range): BP systolic 94–130; BP diastolic 29–64
[2020-06-24] MEDS: MIDODRINE HCL 5 MG TABLET PO SCH ×3 (00:57→14:55)
[2020-06-24 04:15] LABS: BASOPHILS % (AUTO) 0.5 % (0.0-5.0); EOSINOPHILS % (AUTO) 4.4 % (0.0-8.0); HEMATOCRIT 24.3 % (36-48); LYMPHOCYTES % (AUTO) 16.2 % (21.0-51.0); MEAN CORPUSCULAR HEMOGLOBIN 29.7 pg (27.0-33.0); MEAN CORPUSCULAR HGB CONC 31.3 g/dL (32.0-36.0); MEAN CORPUSCULAR VOLUME 94.9 fL (79-99); MONOCYTES % (AUTO) 13.6 % (3.0-13.0); PLATELET COUNT (AUTO) 120 K/uL (130-400); RED BLOOD CELL COUNT(AUTO) 2.56 MIL/uL (4.00-5.50); RED CELL DISTRIBUTION WIDTH 15.2 % (11.0-15.5); WHITE BLOOD COUNT (AUTO) 6.6 K/uL (4.8-10.8)
[2020-06-24 04:36] LABS: ALBUMIN 1.9 g/dL (3.5-5.0); BILIRUBIN,TOTAL 0.4 mg/dL (0.2-1.0); CREATININE 4.3 mg/dL (0.5-1.5); MAGNESIUM 1.4 mg/dL (1.80-2.40); PHOSPHORUS 4.5 mg/dL (2.5-4.9); TOTAL PROTEIN, SERUM 4.8 g/dL (6.0-8.3)
[2020-06-24 04:39] LABS: POTASSIUM 2.8 mmol/L (3.5-5.1)
[2020-06-24] MEDS ORDERED: POTASSIUM CHLORIDE 10% ELIXIR 20 MEQ/15 ML UDCUP PO PRN (05:00)
[2020-06-24] MEDS ORDERED: POTASSIUM CHLORIDE 10MEQ/100ML 100 ML IV PRN ×2 (05:00)
[2020-06-24] MEDS ORDERED: KCL 20 MEQ ERTAB PO ONE (05:09)
[2020-06-24] MEDS: ZOSYN 3.375GM+NS 50ML 50 ML IV SCH ×3 (05:17→15:02)
[2020-06-24] MEDS: INSULIN HUMULIN R 100 UNIT/ML 3ML SQ SCH ×3 (06:53→16:54)
[2020-06-24] MEDS: SEVELAMER HCL 800 MG TABLET PO SCH ×3 (08:15→16:53)
[2020-06-24] MEDS: ASPIRIN 81MG CHEW TAB PO SCH (08:16)
[2020-06-24] MEDS: LOSARTAN 50 MG TABLET PO SCH (08:16)
[2020-06-24] MEDS: DOCUSATE SODIUM 100 MG CAP PO SCH (08:17)
[2020-06-24] MEDS: SENNOSIDES 8.6 MG TABLET PO SCH (08:18)
[2020-06-24] MEDS: INSULIN GLARGINE 100 UNITS/ML 10 ML VIAL SQ SCH (08:19)
[2020-06-24] MEDS: KCL 20 MEQ ERTAB PO PRN ×2 (09:17→11:16)
[2020-06-24] MEDS: LACTULOSE 20 GM/30 ML UDCUP PO SCH (09:21)
[2020-06-24] MEDS ORDERED: MIDO10TA PO (15:51)
[2020-06-24] MEDS ORDERED: SEVE800 PO (15:51)
[2020-06-25] MEDS ORDERED: EPOETIN ALFA-EPBX (ESRD) 10,000 UNIT/ML VIAL SQ SCH (11:30)
== END 2020-06-24 18:26 | disposition home or self-care (01) | DRG 444 ==
LOC: EDH 11:19 → EDHIP 17:53 → 4DH 06-19 02:29 → 2DH 06-20 01:30 → 4BH 06-23 14:48
PROVIDERS: ADMIT Internal Medicine; ATTEND Internal Medicine
PROC: 5A1D70Z Performance of Urinary Filtration, Intermittent, Less than 6 Hours Per Day (ICD-10-PCS; 2020-06-20)
PROC: 30233N1 Transfusion of Nonautologous Red Blood Cells into Peripheral Vein, Percutaneous Approach (ICD-10-PCS; 2020-06-20)
PROC: 5A1D70Z Performance of Urinary Filtration, Intermittent, Less than 6 Hours Per Day (ICD-10-PCS; principal; 2020-06-23)
DX: K80.00 Calculus of gallbladder with acute cholecystitis without obstruction (principal); N18.6 End stage renal disease; I21.A1 Myocardial infarction type 2; I42.8 Other cardiomyopathies; I50.1 Left ventricular failure, unspecified; I13.2 Hypertensive heart and chronic kidney disease with heart failure and with stage 5 chronic kidney disease, or end stage renal disease; D63.8 Anemia in other chronic diseases classified elsewhere; Z99.2 Dependence on renal dialysis; E11.65 Type 2 diabetes mellitus with hyperglycemia; E11.22 Type 2 diabetes mellitus with diabetic chronic kidney disease; D72.810 Lymphocytopenia; E78.5 Hyperlipidemia, unspecified; E87.5 Hyperkalemia; Z20.822 Contact with and (suspected) exposure to COVID-19; N26.1 Atrophy of kidney (terminal); I25.10 Atherosclerotic heart disease of native coronary artery without angina pectoris; Z95.0 Presence of cardiac pacemaker; Z83.3 Family history of diabetes mellitus; Z79.84 Long term (current) use of oral hypoglycemic drugs; Z88.8 Allergy status to other drugs, medicaments and biological substances
CPT/HCPCS: 36415; 71045; 74176; 76705; 78226; 80048; 80053; 80074; 80076; 82550; 82948; 83605; 83690; 83735; 84100; 84132; 84145; 84484; 85025; 85651; 86140; 86850; 86900; 86901; 86923; 87040; 87426; 90935; 93005; 93306; 93356; A9537; G0378; J1815; J2260; J2405; J2543; J3490; J7030; J7040; J7050; J7070; P9016; P9046; Q9967

== ENCOUNTER 2020-07-10 10:57 | Emergency (ER) | payer MEDICARE ==
[~2020-07-10 10:57] MED LIST changes: +ATOR40TA71 PO; -CARV6.25 PO; -ISOS30TA92 PO; +MIDO10TA PO; +OMEP40CA13 PO; -OMEP40CA21 PO; +SEVE800 PO; -VALS40TA11 PO
== END 2020-07-10 15:33 | disposition expired ==
LOC: EDH 10:57
DX: I46.9 Cardiac arrest, cause unspecified (principal); I12.0 Hypertensive chronic kidney disease with stage 5 chronic kidney disease or end stage renal disease; E11.22 Type 2 diabetes mellitus with diabetic chronic kidney disease; N18.6 End stage renal disease; E78.5 Hyperlipidemia, unspecified; Z88.8 Allergy status to other drugs, medicaments and biological substances
CPT/HCPCS: 92950